=== PATIENT | female | born 1960 | race Caucasian/White ===

== ENCOUNTER 2020-03-08 11:31 | Emergency (ER) | payer SELFPAY ==
[~2020-03-08] VITALS: Ht 152.4 cm; Wt 71.7 kg
[2020-03-08 12:06] VITALS: Ht 152.4 cm; Wt 71.7 kg
[2020-03-08 14:52] LABS: BASOPHIL % 0.5 % (0-2); PLATELET COUNT 262 x10^3mcL (130-400); RED CELL DISTRIBUTION WIDTH 13.4 % (11.5-14.5)
[2020-03-08 17:09] LABS: CALCIUM 9.2 mg/dL (8.5-10.1); CARBON DIOXIDE 25.2 mmol/L (21-32); CHLORIDE SERUM 104 mmol/L (98-107); CREATININE SERUM 0.8 mg/dL (0.6-1.0); GFR1 > 60 mL/min; GLUCOSE SERUM 96 mg/dL (74-106); POTASSIUM SERUM 4.6 mmol/L (3.5-5.1); SODIUM SERUM 141 mmol/L (136-145)
[2020-03-08 17:14] LABS: ALKALINE PHOSPHATASE 94 U/L (46-116); ALT/SGPT 20 U/L (14-59); AST/SGOT 12 U/L (15-37); BILIRUBIN TOTAL 0.49 mg/dL (0.20-1.00); TOTAL PROTEIN, SERUM 7.9 g/dL (6.4-8.2)
[2020-03-08 18:16] VITALS: BP 127/89
== END 2020-03-08 17:00 | disposition home or self-care (01) ==
LOC: ED 11:31
DX: R42 Dizziness and giddiness (principal)
CPT/HCPCS: 36415; J8597; Q0164